=== PATIENT | female | born 1965 | race Two or more races ===

== ENCOUNTER → 2018-07-20 | Outpatient (CLI) | END | disposition home or self-care (01) ==

== ENCOUNTER → 2018-08-04 | Outpatient (CLI) | END | disposition home or self-care (01) ==

== ENCOUNTER → 2018-12-08 | Outpatient (CLI) | payer OTHER ==
--- NOTE | 2018-12-08 17:47 | HKNOTE ---
DATE OF SERVICE: HISTORY OF PRESENT ILLNESS: Ms. Boudreaux returns today complaining of severe pain in her bilateral kne es. The left knee is worse than the right knee. She has difficulty performing her activities of abril ly living. She has had previous pain medications and physical therapy as well as viscosupplementatio n without pain relief. PHYSICAL EXAMINATION: Left knee: Varus alignment, tender over the medial joint line, 0 to 120 degrees range of motion, sta ble to varus valgus stress, negative Marci, negative anterior drawer, negative posterior drawer. Right knee: Varus alignment, tender over the medial joint line, 0 to 120 degrees range of motion, st able to varus valgus stress, negative Marci, negative anterior drawer, negative posterior drawer. IMAGIN. X-rays of right knee: There is [id number] contact of the medial compartment with peripheral os teophytes, subchondral sclerosis. There are also peripheral osteophytes of the lateral compartment w ith degenerative changes of the patellofemoral joint. 2. X-rays of left knee: There is [id number] contact of the medial compartment with peripheral ost eophytes, subchondral sclerosis. There are also peripheral osteophytes of the lateral compartment wi th degenerative changes of the patellofemoral joint. IMPRESSION: A 53-year-old female with bilateral knee osteoarthritis who has failed nonoperative evan gement. PLAN: We will request authorization for MRI of the left knee with [facility] protocol and left hip x -ray for surgical planning. She will return in 6 weeks. Dictated By: EBONY SAUCEDO/TOSHIA Conf#: [id number] DID#: [id number]
--- NOTE | 2018-12-09 10:35 | RADRPT ---
PROCEDURE: XR Knees. CLINICAL INDICATION: Bilateral knee pain. TECHNIQUE: Total of eight views. Weightbearing frontal, oblique, and lateral views of the both kne es. Patellar views of both knees. COMPARISON: No prior study is available for comparison. FINDINGS: There is no fracture or dislocation. The soft tissues are normal. There are degenerative changes with osteophytes arising from all 3 joint compartment margins bilatera lly. There is bilateral medial joint compartment narrowing and subarticular sclerosis with left worse than right. There is no lytic or blastic lesion. There is no radiopaque foreign body. IMPRESSION: 1. Moderate to severe degenerative changes of both knees with left worse than right. 2. Otherwise unremarkable study. RPTAT: QQ .Luciano Mayo MD, MD Date Time Electronically viewed and signed by .Luciano Mayo MD, on 12/09/2018 10:34 .R/
== END | disposition home or self-care (01) ==
LOC: HKI 15:01
PROVIDERS: ATTEND Orthopaedic Surgery Adult Reconstructive Orthopaedic Surgery
DX: M17.0 Bilateral primary osteoarthritis of knee (principal)
CPT/HCPCS: 73564; Z7500; G0463